=== PATIENT | female | born 1970 | race Caucasian/White ===

== ENCOUNTER 2019-10-10 10:31 | Outpatient (CLI) | payer BC, SELFPAY ==
[2019-10-10 11:04] LABS: Basophils Percent Auto 0.7 % (0.2-1.2); Eosinophils Absolute Auto 0.3 K/mm3 (0-0.3); Eosinophils Percent Auto 7.2 % (0-4.4); Hematocrit 38.1 % (37.0-47.0); Hemoglobin 12.8 g/dL (12.0-15.0); Immature Granulocyte Absolute 0.01 K/mm3 (0.00-0.031); Immature Granulocyte Percent A 0.2 % (0-0.5); Lymphocytes Absolute Auto 1.39 K/mm3 (0.9-3.2); Lymphocytes Percent Auto 30.4 % (18.3-44.2); Mean Corpuscular HGB Conc 33.6 g/dl (32-36); Mean Corpuscular Hemoglobin 32.4 pg (26-34); Mean Corpuscular Volume 96.5 fl (80-100); Monocytes Absolute Auto 0.4 K/mm3 (0.1-0.6); Monocytes Percent Auto 8.1 % (2.6-8.5); Neutrophils Absolute Auto 2.4 K/mm3 (1.3-6.7); Neutrophils Percent Auto 53.4 % (45.5-73.1); Platelet Count Result 238 k/mm3 (150-375); Red Blood Count 3.95 M/mm3 (4.2-5.4); Red Cell Distribution Width 12.5 % (11.5-14.5); White Blood Count 4.6 K/mm3 (4.5-10.0)
[2019-10-10 11:33] LABS: Beta HCG Quantitative < 2.39 mIU/ML
[2019-10-14 06:03] LABS: FSH 9.1 mIU/mL (***); Prolactin 39.1 ng/mL (***)
[2019-10-15 19:12] LABS: Estradiol, Ultrasensitive 113 pg/mL
== END 2019-10-10 10:32 | disposition home or self-care (01) ==
LOC: ANHLAB 10:33
PROVIDERS: PCP Family Medicine; Visit Provider Obstetrics & Gynecology
DX: N92.0 Excessive and frequent menstruation with regular cycle (principal)
CPT/HCPCS: 36415; 82670; 83001; 84146; 84443; 84702; 85025

== ENCOUNTER 2019-11-17 07:13 | Outpatient (CLI) | payer BC, SELFPAY ==
[2019-11-17 07:32] LABS: Basophils Absolute Auto 0.1 K/mm3 (0.0-0.1); Basophils Percent Auto 0.9 % (0.2-1.2); Eosinophils Absolute Auto 0.6 K/mm3 (0-0.3); Eosinophils Percent Auto 10.3 % (0-4.4); Hematocrit 39.6 % (37.0-47.0); Hemoglobin 13.1 g/dL (12.0-15.0); Immature Granulocyte Absolute 0.01 K/mm3 (0.00-0.031); Immature Granulocyte Percent A 0.2 % (0-0.5); Lymphocytes Absolute Auto 1.76 K/mm3 (0.9-3.2); Lymphocytes Percent Auto 31.8 % (18.3-44.2); Mean Corpuscular HGB Conc 33.1 g/dl (32-36); Mean Corpuscular Hemoglobin 32.2 pg (26-34); Mean Corpuscular Volume 97.3 fl (80-100); Mean Platelet Volume 10.3 fl (7.4-10.4); Monocytes Absolute Auto 0.5 K/mm3 (0.1-0.6); Monocytes Percent Auto 8.8 % (2.6-8.5); Neutrophils Absolute Auto 2.7 K/mm3 (1.3-6.7); Platelet Count Result 217 k/mm3 (150-375); Red Blood Count 4.07 M/mm3 (4.2-5.4); Red Cell Distribution Width 12.7 % (11.5-14.5); White Blood Count 5.5 K/mm3 (4.5-10.0)
[2019-11-17 07:48] LABS: Alanine Aminotransferase 21 U/L (4-35); Alkaline Phosphatase 43 U/L (38-126); Anion Gap 6 mmol/L (8-16); Aspartate Amino Transferase 43 U/L (14-36); Bilirubin,Total 0.9 mg/dL (0.2-1.3); Blood Urea Nitrogen 10 mg/dL (7-17); Calcium 9.1 mg/dL (8.4-10.2); Carbon Dioxide 26 mmol/L (22-30); Chloride 107 mmol/L (98-107); Cholesterol 186 mg/dL (0-200); Estimated Glomerular Filt Rate > 60; Glucose 98 mg/dL (65-105); HDL Direct 53 mg/dL; Sodium 139 mmol/L (137-145); Triglycerides 104 mg/dL (<150)
[2019-11-17 07:59] LABS: LDL Cholesterol Direct 97 mg/dL
[2019-11-17 13:39] LABS: Hemoglobin A1C 5.2 % (<5.7)
== END 2019-11-17 07:14 | disposition home or self-care (01) ==
PROVIDERS: PCP Family Medicine
DX: R21 Rash and other nonspecific skin eruption (principal)
CPT/HCPCS: 36415; 80053; 80061; 83036; 85025

== ENCOUNTER → 2020-01-05 10:14 | Outpatient (CLI) | payer BC, SELFPAY ==
--- NOTE | ~2020-01-05 | MM_ITS ---
EXAMINATION: MM screening steve BI w kelechi HISTORY: Screening TECHNIQUE: Craniocaudal and mediolateral oblique 3-D tomosynthesis images were obtained and synthetic 2-D images were generated. CAD analysis was submitted and interpreted. COMPARISON: Comparison to multiple prior studies sequentially, with oldest reviewed study dated 08/12. BREAST PARENCHYMAL COMPOSITION: The breasts are heterogenously dense, which may obscure small masses FINDINGS: There is no evidence of suspicious mass, calcification, or architectural distortion to sugg est malignancy in either breast. There has been no suspicious interval change. IMPRESSION: 1. No mammographic evidence of malignancy. 2. Recommend routine screening mammography in one year. BI-RADS Category 1: Negative Reviewed, dictated and finalized at location A. [facility] [employer]OPMENT
== END ==
PROVIDERS: PCP Family Medicine; Visit Provider Obstetrics & Gynecology
DX: Z12.31 Encounter for screening mammogram for malignant neoplasm of breast (principal)
CPT/HCPCS: 77063; 77067

== ENCOUNTER 2021-08-12 07:10 | Outpatient (CLI) | payer BC, SELFPAY ==
[2021-08-12 07:48] LABS: Eosinophils Absolute Auto 0.5 K/mm3 (0-0.3); Eosinophils Percent Auto 11.9 % (0-4.4); Hematocrit 41.3 % (37.0-47.0); Hemoglobin 14.1 g/dL (12.0-15.0); Immature Granulocyte Absolute 0.01 K/mm3 (0.00-0.031); Immature Granulocyte Percent A 0.2 % (0-0.5); Lymphocytes Absolute Auto 1.26 K/mm3 (0.9-3.2); Mean Corpuscular HGB Conc 34.1 g/dl (32-36); Mean Corpuscular Hemoglobin 32.3 pg (26-34); Mean Corpuscular Volume 94.7 fl (80-100); Mean Platelet Volume 10.1 fl (7.4-10.4); Monocytes Absolute Auto 0.4 K/mm3 (0.1-0.6); Monocytes Percent Auto 10.2 % (2.6-8.5); Neutrophils Percent Auto 46.7 % (45.5-73.1); Platelet Count Result 198 k/mm3 (150-375); Red Blood Count 4.36 M/mm3 (4.2-5.4); Red Cell Distribution Width 13.1 % (11.5-14.5); White Blood Count 4.2 K/mm3 (4.5-10.0)
[2021-08-12 08:18] LABS: Beta HCG Quantitative < 2.39 mIU/ML
[2021-08-19 23:32] LABS: Estradiol, Ultrasensitive 65 pg/mL
[2021-08-28 12:10] LABS: FSH 11.8 mIU/mL (***); Progesterone 0.7 ng/mL (***); Prolactin 32.3 ng/mL (***)
== END 2021-08-12 07:11 | disposition home or self-care (01) ==
LOC: ANHLAB 07:12
PROVIDERS: PCP Family Medicine; Visit Provider Obstetrics & Gynecology
DX: N93.9 Abnormal uterine and vaginal bleeding, unspecified (principal)
CPT/HCPCS: 36415; 82670; 83001; 84144; 84146; 84702; 85025

== ENCOUNTER → 2021-08-19 13:25 | Outpatient (CLI) | payer BC, SELFPAY ==
--- NOTE | ~2021-08-19 | US_ITS ---
EXAMINATION: US pelvic complete w TV DATE: 08/19/2021 13:50 INDICATION: Menorrhagia Comparison:Ultrasound dated 10/16/2017 TECHNIQUE: Multiple transabdominal and endovaginal sonographic images of the pelvis performed. FINDINGS: The uterus measures 6.8 x 3.4 x 4.3 cm. There are uterine fibroids, largest on the right me asuring 1.9 x 2 x 1.7 cm. The endometrial complex measures 4 mm. The right ovary measures 2 x 1.1 x 1.4 cm and the left ovary measures 4.6 x 4.4 x 3.6 cm. There are small follicles in each ovary. There is a left ovarian cyst measuring 4 x 3.2 x 3.3 cm. Normal dopple r signal in both ovaries. There is no free fluid in the pelvis. There are no abnormal masses seen on either side. IMPRESSION: 1. Uterine fibroids, largest measuring 2 cm. 2: Left ovarian cyst measuring 4 cm. Reviewed, dictated and finalized at location A.
== END ==
PROVIDERS: PCP Family Medicine; Visit Provider Obstetrics & Gynecology
DX: N93.9 Abnormal uterine and vaginal bleeding, unspecified (principal); D25.9 Leiomyoma of uterus, unspecified; N83.202 Unspecified ovarian cyst, left side
CPT/HCPCS: 76830; 76856

== ENCOUNTER 2021-08-26 02:10 | Day surgery (SDC) | payer BC, SELFPAY ==
[2021-08-23 08:23] VITALS: BMI 27.4
--- NOTE | 2021-08-23 08:34 | SUR.PREOP ---
Report to the Outpatient Waiting Room, entrance under the green pavilion located off [facility], at time 11:00 on date 08/26/21. OR Time: 13:00. - You and your visitor will be asked a series of questions to screen for COVID 19 for your protection. - Only one visitor is allowed at this time. - The patient visitor is requested to leave or wait in car when not with patient. - A mask is required within the hospital. Patients may have clear liquids (water, carbonated beverages, clear teas, apple juice) until 3 hours prior to surgery with a maximum of 20 ounces. - No food from midnight until time of surgery BEFORE 10:00 AM - Infants may have breast milk until 4 hours before surgery, formula 6 hours prior to surgery. - Children will be allowed to drink immediately following surgery. If applicable, please bring a bottle or sippy cup to assist with drinking. Juice, water, soda, and popsicles are readily available. For infants on formula, please bring formula the day of surgery. Pacifiers are allowed. Take the following medications with a SIP of water the morning of surgery: _MEDROXYPROGESTERONE_ Medications to discontinue per physician n/a Date to take last dose Please no make-up, nail vietnamese, hairspray, perfume, deodorant, or body powder the day of surgery. No jewelry (including any body piercings) or valuables the day of surgery, leave them at home. Please take a shower or bath the night before, or the morning of, surgery with an antibacterial soap. Wear comfortable, loose fitting clothing. Children are encouraged to wear pajamas. - Jewelry must be removed prior to entering the operating room. Rings and piercings that are not removed may be cut off. - The hospital will not accept responsibility for valuables. - Please leave all valuables, including medications, at home the day of surgery. If you are going home after surgery, a licensed local combination truck driver must drive you home. - NO public transportation without another adult. - We recommend that an adult stay with you for 24 hours following discharge. - We also recommend that you do not drive, make important decision, drink alcoholic beverages, or take any drugs that were not prescribed by your health care provider for at least 24 hours after your discharge time. For Pediatric surgeries, we recommend two adults accompany the child home (only one inside the building at this time). Follow any additional instructions given to you from your surgeon. If you or anyone in your household have experienced Covid symptoms in the past week, please notify your surgeon or the nurse liaison at the phone number below for possible testing. Telephone instructions given to ___PATIENT___and asked if any additional questions and then verbalized understanding. Patient advised to call surgeon office or pre surgery nurse liaison [phone] if any additional questions.
[2021-08-26] MEDS: LACTATED RINGERS 1,000 ML 30 ML IV CONT (11:30)
[2021-08-26] MEDS: ACETAMINOPHEN 500 MG TABLET 1000 MG PO (11:30)
[2021-08-26 11:37] VITALS: BP 122/71; PULSE 52; RESP 14; TEMP 36.6; O2SAT 99
--- NOTE | 2021-08-26 12:21 | P.PNAN_ITS ---
Anes - Initial Pre Proc Eval Procedure: Operation Date: 08/26/21 13:00 Proposed Procedures p Hysteroscopy Dilation and Curettage - Sharlene Crandall MD Date/Time: 08/26/21 12:21 Surgeon: Sharlene Crandall MD Pre Op Diagnosis: menometrorrhagia Patient Data Age: 51 Gender: F Height: 1.63 m Weight: 75.45 kg Last Vital Signs Temp 36.6 C 08/26/21 11:37 Pulse 52 L 08/26/21 11:37 Resp 14 08/26/21 11:37 BP 122/71 08/26/21 11:37 Pulse Ox 99 08/26/21 11:37 O2 Del Method Room Air 08/26/21 11:37 Allergies Allergy/AdvReac Type Severity Reaction Status Date / Time No Known Allergies Allergy Unknown Verified 08/26/21 11:09 Home Medications Medication Instructions Recorded Confirmed Type medroxyprogesterone 5 mg tablet 5 mg PO DAILY #60 tabs 08/10/21 08/26/21 Rx (Provera) Patient hx anesthesia problems: none Family hx anesthesia problems: none Results Review: All pre-operative results and documents have been reviewed as part of the pre- operative evaluation. [facility] Past Medical History Medical History Acute bronchitis, unspecified Acute sinusitis, unspecified BMI 28.0-28.9,adult BMI 29.0-29.9,adult Dietary counseling and surveillance (01/07/18) Heart palpitations Herpes zoster without complication Painful urination Yeast infection Surgical History Surgical History (Updated 08/26/21 @ 12:21 by Raz Blanchard MD) History of appendectomy Family History Family History Father Family history of elevated blood lipids Malignant neoplasm of prostate Family history of thyroid disease Hypertension Grandparent Family history of malignant neoplasm of uterus Family history of malignant neoplasm of breast Mother Acute myocardial infarction, Onset Age: 78 Sibling Leukemia Social History Social History Smoking status: Never smoker Second hand tobacco smoke exposure: No Alcohol intake: current Substance use: never Substance use type: does not use Living arrangements: with family 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 Informed Consent: The patient's anesthetic plan and its attendant risks and benefits were discussed with the patient/family/POA. Questions were solicited and answers provided to the satisfaction of the patient/family/POA.
--- NOTE | 2021-08-26 12:48 | PM.IMHP ---
H&P: HPI History of Present Illness Date/Time: 08/26/21 12:38 Chief Complaint: abnormal uterine bleeding Narrative: Ave is a 51yo perimenopausal P2002, LMP07/31/21 who presented to [facility] for AUB. Her pap is normal 10/2020. She has been having AUB for the last 1-2 years; but it was improving last fall. But beginning Mar 2020, she started having 2 cycles per month. The first bleed is normally a usual period; decently heavy (but the clots are smaller in size). But then she has another cycle that's heavier than spotting and multiple days. The most she had bled was 8 days, but this time she has been bleeding for 11 days. She is having significant hot flashes and night sweats. No symptoms of anemia. US showed normal sized uterus w/ 2cm fibroid; endometrium 4mm, left ovarian simple cyst measuring 4cm. Review of Systems Review of Systems: All systems reviewed & are unremarkable except as noted in HPI and below (HPI) [facility] Past Medical History Medical History Acute bronchitis, unspecified Acute sinusitis, unspecified BMI 28.0-28.9,adult BMI 29.0-29.9,adult Dietary counseling and surveillance (01/07/18) Heart palpitations Herpes zoster without complication Painful urination Yeast infection Surgical History Surgical History (Updated 08/26/21 @ 12:21 by Raz Blanchard MD) History of appendectomy Family History Family History Father Family history of elevated blood lipids Malignant neoplasm of prostate Family history of thyroid disease Hypertension Grandparent Family history of malignant neoplasm of uterus Family history of malignant neoplasm of breast Mother Acute myocardial infarction, Onset Age: 78 Sibling Leukemia Social History Social History Smoking status: Never smoker Second hand tobacco smoke exposure: No Alcohol intake: current Substance use: never Substance use type: does not use Living arrangements: with family 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 Meds Home Medications and Allergies Home Medications Medication Instructions Recorded Confirmed Type medroxyprogesterone 5 mg tablet 5 mg PO DAILY #60 tabs 08/10/21 08/23/21 Rx (Provera) Allergies Allergy/AdvReac Type Severity Reaction Status Date / Time No Known Allergies Allergy Unknown Verified 08/26/21 11:09 Exam Const: General: cooperative, healthy appearing, comfortable and no acute distress Resp: Effort & Inspection: normal respiratory effort Cardio: Rate: regular rate GI: Inspection: normal to inspection GI Palp: Yes Soft to palpation and No Tenderness to palpation present (GI) : Other: deferred to OR Skin: General skin exam: normal color Neuro: General: patient oriented x3 Extrem: General: normal to inspection Psych: Appearance: grossly normal Affect: normal affect Attitude: cooperative Assessment and Plan Assessment and plan (1) Abnormal uterine bleeding (AUB): Code(s): N93.9 - Abnormal uterine and vaginal bleeding, unspecified Status: Acute Plan - needs endometrial sampling - proceed with Hysteroscopy with D&C - risks and benefits explained in detail
--- NOTE | 2021-08-26 12:49 | WPDHPUPDATE1 ---
History and Physical Update Update Date/Time: 08/26/21 12:49 History and Physical has been reviewed, including an updated exam of the patient. There are NO changes in the patient's condition. Risks, benefits, and alternatives have been discussed and questions answered. Patient agrees to proceed with procedure.
--- NOTE | 2021-08-26 13:30 | W.PM.PROC2 ---
Procedure Note - Detailed Date of Procedure 08/26/21 Pre-op Diagnosis menometrorrhagia Post-op Diagnosis Same Procedure Performed Hysteroscopy with dilation and curettage Surgeon Sharlene Crandall MD Anesthesia MAC Christiano Dorado is a 51yo perimenopausal P2002, LMP07/31/21 who presented to clinic for AUB. Her pap is normal 10/2020. She has been having AUB for the last 1-2 years; but it was improving last fall. But beginning Mar 2020, she started having 2 cycles per month. The first bleed is normally a usual period; decently heavy (but the clots are smaller in size). But then she has another cycle that's heavier than spotting and multiple days. The most she had bled was 8 days, but this time she has been bleeding for 11 days. She is having significant hot flashes and night sweats. No symptoms of anemia. US showed normal sized uterus w/ 2cm fibroid; endometrium 4mm, left ovarian simple cyst measuring 4cm. Findings Uterus sounded to 7 cm; normal tubal ostia visualized bilaterally; normal appearing endometrium, possibly slightly thickened. Good hemostasis at end of case. Description of Procedure Ave was taken to the operating room where she was placed under sedation. She was then prepped and draped in the usual sterile fashion the dorsal lithotomy position with her legs in low Jay stirrups. A time-out was performed. No preoperative antibiotics were indicated. A bivalve speculum was placed within the vagina with the cervix was easily identified. The anterior lip of the cervix was grasped with single-tooth tenaculum. The uterus was then sounded. The cervix was then serially dilated to allow for the true clear hysteroscope. The hysteroscope was advanced into the uterus with the above findings noted. The hysteroscope was removed and a small curette was used to obtain an adequate endometrial sample. Good uterine cry was noted. Good hemostasis was noted. Sponge, lap, instrument, and needle counts were correct at the end the procedure. Patient was awoken from anesthesia and taken to recovery in a stable condition with plans of same-day discharge home. She was counseled on pelvic rest and [id number] medications to take for pain. Estimated Blood Loss 5 Pathology Yes Complications No immediate complications Condition Stable Disposition Same day [facility] Billing Surgery - Charge Forward: Surgery Billing
[2021-08-26 13:32] VITALS: BP 112/71; PULSE 58; RESP 16; O2SAT 99
[2021-08-26 14:00] VITALS: BP 118/73; PULSE 50
[2021-08-26] MEDS: oxyCODONE HCL (*CRX) 5 MG TAB IR PO (14:05)
[2021-08-26 14:25] VITALS: BP 131/71; PULSE 44
== END 2021-08-26 14:34 | disposition home or self-care (01) ==
PROVIDERS: PCP Family Medicine; Visit Provider Obstetrics & Gynecology
PROC: 0U5B8ZZ Destruction of Endometrium, Via Natural or Artificial Opening Endoscopic (ICD-10-PCS; CPT 58563; principal; 2021-08-26 13:00)
DX: N92.1 Excessive and frequent menstruation with irregular cycle (principal)
CPT/HCPCS: 58558; 88305; A9270; J1100; J1885; J2250; J2405; J2704; J3010; J7030; J7120

== ENCOUNTER 2022-09-20 07:25 | Outpatient (CLI) | payer BC, SELFPAY ==
[2022-09-20 07:57] LABS: Basophils Percent Auto 0.8 % (0.2-1.2); Eosinophils Absolute Auto 0.4 K/mm3 (0-0.3); Eosinophils Percent Auto 10.3 % (0-4.4); Hemoglobin 13.2 g/dL (12.0-15.0); Lymphocytes Absolute Auto 1.21 K/mm3 (0.9-3.2); Lymphocytes Percent Auto 32.9 % (18.3-44.2); Mean Corpuscular HGB Conc 33.8 g/dl (32-36); Mean Corpuscular Hemoglobin 32.4 pg (26-34); Mean Corpuscular Volume 95.8 fl (80-100); Mean Platelet Volume 10.6 fl (7.4-10.4); Monocytes Absolute Auto 0.3 K/mm3 (0.1-0.6); Monocytes Percent Auto 8.7 % (2.6-8.5); Neutrophils Absolute Auto 1.7 K/mm3 (1.3-6.7); Neutrophils Percent Auto 47.3 % (45.5-73.1); Platelet Count Result 165 k/mm3 (150-375); Red Blood Count 4.07 M/mm3 (4.2-5.4); Red Cell Distribution Width 13.2 % (11.5-14.5); White Blood Count 3.7 K/mm3 (4.5-10.0)
[2022-09-20 08:08] LABS: Alanine Aminotransferase 31 U/L (6-35); Albumin Level 4.2 g/dL (3.5-5.1); Alkaline Phosphatase 49 U/L (38-126); Anion Gap 2 mmol/L (8-16); Aspartate Amino Transferase 47 U/L (14-36); Bilirubin,Total 0.9 mg/dL (0.2-1.3); Blood Urea Nitrogen 10 mg/dL (7-17); Calcium 9.3 mg/dL (8.4-10.2); Carbon Dioxide 31 mmol/L (22-30); Chloride 106 mmol/L (98-107); Cholesterol 187 mg/dL (0-200); Estimated Glomerular Filt Rate > 60; Glucose 97 mg/dL (65-110); HDL Direct 54 mg/dL; Potassium 3.8 mmol/L (3.4-5.0); Sodium 139 mmol/L (137-145); Triglycerides 101 mg/dL (<150)
[2022-09-20 08:19] LABS: LDL Cholesterol Direct 83 mg/dL
== END 2022-09-20 07:26 | disposition home or self-care (01) ==
PROVIDERS: PCP Family Medicine; Visit Provider Physician Assistant Medical
DX: N93.9 Abnormal uterine and vaginal bleeding, unspecified (principal); R00.2 Palpitations; Z13.220 Encounter for screening for lipoid disorders
CPT/HCPCS: 36415; 80053; 80061; 85025

== ENCOUNTER 2022-10-27 00:57 | Day surgery (SDC) | payer BC, SELFPAY ==
[2022-10-18 14:07] VITALS: BMI 27.5
[2022-10-27 11:12] VITALS: BP 121/80; PULSE 61; RESP 16; TEMP 36.4; O2SAT 99; BMI 29.4
[2022-10-27] MEDS: LACTATED RINGERS 1,000 ML 150 ML IV CONT (11:15)
--- NOTE | 2022-10-27 11:18 | WPDANESEPPF ---
Anes - Initial Pre Proc Eval Procedure: Operation Date: 10/27/22 12:30 Proposed Procedures p Screening Colonoscopy - Gentry Hobbs MD Date/Time: 10/27/22 11:18 Surgeon: Gentry Hobbs MD Pre Op Diagnosis: neoplasm screening Patient Data Age: 52 Gender: F Height: 1.63 m Weight: 77.8 kg Last Vital Signs Temp 36.4 C L 10/27/22 11:12 Pulse 61 10/27/22 11:12 Resp 16 10/27/22 11:12 BP 121/80 10/27/22 11:12 Pulse Ox 99 10/27/22 11:12 O2 Del Method Room Air 10/27/22 11:12 Allergies Allergy/AdvReac Type Severity Reaction Status Date / Time No Known Allergies Allergy Unknown Verified 10/27/22 11:11 Home Medications Medication Instructions Recorded Confirmed Type medroxyprogesterone 5 mg tablet 5 mg PO DAILY #90 tabs 03/08/22 10/27/22 Rx (Provera) Patient hx anesthesia problems: none Family hx anesthesia problems: none Results Review: All pre-operative results and documents have been reviewed as part of the pre-operative evaluation. COUNTS INCLUDE 234 BEDS AT THE [facility] Past Medical History Medical History Acute bronchitis, unspecified Acute sinusitis, unspecified BMI 28.0-28.9,adult BMI 29.0-29.9,adult Dietary counseling and surveillance (01/07/18) Heart palpitations Herpes zoster without complication Painful urination Screening mammogram, encounter for Yeast infection Surgical History Surgical History History of appendectomy Family History Family History Father Family history of elevated blood lipids Malignant neoplasm of prostate Family history of thyroid disease Hypertension Grandparent Family history of malignant neoplasm of uterus Family history of malignant neoplasm of breast Mother Acute myocardial infarction, Onset Age: 78 Sibling Leukemia Other Breast cancer Cerebrovascular accident Colon cancer Heart disease Ovarian cancer Social History Social History Smoking status: Never smoker Second hand tobacco smoke exposure: No Alcohol intake: current Alcohol use details: socially Substance use: never Substance use type: does not use Lack of Transportation: No Lack of Food: Never True Current Housing: I Have Housing Concerned About Future Housing: No Difficulty Paying Gas/Electric Bills: No Difficulty Paying for Meds: No Currently Unemployed: No Education: Bachelor's Degree Difficulty w/ Childcare or Family Care: No Living arrangements: with family Occupation/Education: occupation 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 Sexual Orientation (if Verbalized by the Patient): Straight or Heterosexual Spiritual care concerns: No Anes - Eval Final PreProcedure Day of Procedure 10/27/22 11:18 Patient weight: overweight Heart: regular rate and rhythm Lungs: clear to auscultation Airway: Mallampati scale class II Neurological: alert and oriented Last oral intake: >/= 8 hours ASA classification: II Emergent: no Anesthetic plan: proceed Anesthesia type and monitoring: general GIVS and standard monitoring Results Review: All pre-operative results and documents have been reviewed as part of the pre-operative evaluation. Informed Consent: The patient's anesthetic plan and its attendant risks and benefits were discussed with the patient/family/POA. Questions were solicited and answers provided to the satisfaction of the patient/family/POA.
--- NOTE | 2022-10-27 11:34 | PM.HPGS ---
History of Present Illness History of Present Illness Consent: Risks, benefits, and alternatives have been discussed and questions answered. Patient agrees to proceed with procedure. Chief complaint: neoplasm screening Narrative: Josie Jolly is a 52 year old female here for first screening colonoscopy Review of Systems Constitutional: Constitutional: Denies headache(s) and Denies weakness Eyes: Eyes: Denies blurry vision ENT: Reports Normal hearing present, Denies headache(s) and Denies neck pain Cardiovascular: Cardiovascular: Denies chest pain and Denies dyspnea Respiratory: Respiratory: Denies dyspnea Gastrointestinal: Gastrointestinal: Reports no additional gastrointestinal complaints Genitourinary: Genitourinary: Denies dysuria Musculoskeletal: Musculoskeletal: Denies neck pain Integumentary/Breasts: Skin/Breast: Denies dry skin Neurologic: Reports Normal hearing present, Denies headache(s) and Denies weakness Psychiatric: Psychiatric: Denies anxiety Endocrine: Endocrine: Denies change in body appearance Hematologic/Lymphatic: Hematologic/Lymphatic: Denies easy bleeding Allergic/Immunologic: Allergic/Immunologic: Denies urticaria PMFSH Past Medical History Medical History Acute bronchitis, unspecified Acute sinusitis, unspecified BMI 28.0-28.9,adult BMI 29.0-29.9,adult Dietary counseling and surveillance (01/07/18) Heart palpitations Herpes zoster without complication Painful urination Screening mammogram, encounter for Yeast infection Surgical History Surgical History History of appendectomy Family History Family History Father Family history of elevated blood lipids Malignant neoplasm of prostate Family history of thyroid disease Hypertension Grandparent Family history of malignant neoplasm of uterus Family history of malignant neoplasm of breast Mother Acute myocardial infarction, Onset Age: 78 Sibling Leukemia Other Breast cancer Cerebrovascular accident Colon cancer Heart disease Ovarian cancer Social History Social History Smoking status: Never smoker Second hand tobacco smoke exposure: No Alcohol intake: current Alcohol use details: socially Substance use: never Substance use type: does not use Lack of Transportation: No Lack of Food: Never True Current Housing: I Have Housing Concerned About Future Housing: No Difficulty Paying Gas/Electric Bills: No Difficulty Paying for Meds: No Currently Unemployed: No Education: Bachelor's Degree Difficulty w/ Childcare or Family Care: No Living arrangements: with family Occupation/Education: occupation 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 Sexual Orientation (if Verbalized by the Patient): Straight or Heterosexual Spiritual care concerns: No Meds Home Medications and Allergies Home Medications Medication Instructions Recorded Confirmed Type medroxyprogesterone 5 mg tablet 5 mg PO DAILY #90 tabs 03/08/22 10/27/22 Rx (Provera) Allergies Allergy/AdvReac Type Severity Reaction Status Date / Time No Known Allergies Allergy Unknown Verified 10/27/22 11:11 Vital Signs Vital Signs - 24 hr 10/27/22 11:12 Temperature 97.5 F L Pulse Rate 61 Respiratory Rate 16 Blood Pressure 121/80 Pulse Oximetry 99 Oxygen Delivery Room Air Exam Const: General: comfortable and no acute distress HENMT: Face/Nose/Sinus: Normal nares present Eyes: General: appearance normal, both eyes and all related structures Neck: Neck: no JVD Resp: Auscultation: clear to auscultation bilaterally Cardio: Rate: regular rate Rhythm: regular rhythm GI: Insp
[2022-10-27 11:55] VITALS: BP 109/71; PULSE 68; RESP 24; O2SAT 100
[2022-10-27 12:05] VITALS: BP 111/77; PULSE 65; RESP 16; O2SAT 100
[2022-10-27 12:15] VITALS: BP 123/82; PULSE 56; RESP 14; O2SAT 100
== END 2022-10-27 12:22 | disposition home or self-care (01) ==
PROVIDERS: PCP Family Medicine; Visit Provider Internal Medicine Gastroenterology
PROC: 0DJD8ZZ Inspection of Lower Intestinal Tract, Via Natural or Artificial Opening Endoscopic (ICD-10-PCS; CPT 45378; principal; 2022-10-27 12:30)
DX: Z12.11 Encounter for screening for malignant neoplasm of colon (principal); K64.8 Other hemorrhoids
CPT/HCPCS: 45378; J2704; J7120

== ENCOUNTER → 2022-12-13 15:56 | Outpatient (CLI) | payer BC, SELFPAY ==
--- NOTE | ~2022-12-13 | MM_ITS ---
EXAMINATION: MM screening steve BI w kelechi HISTORY: Screening mammogram TECHNIQUE: Craniocaudal and mediolateral oblique 3-D tomosynthesis images were obtained and synthetic 2-D images were generated. CAD analysis was submitted and interpreted. COMPARISON: 01/05/2020, 12/31/2018, 10/16/2017 bilateral screening mammogram examinations BREAST PARENCHYMAL COMPOSITION: There are scattered areas of fibroglandular density. FINDINGS: There is no evidence of suspicious mass, calcification, or architectural distortion to sugg est malignancy in either breast. There has been no suspicious interval change. IMPRESSION: 1. No mammographic evidence of malignancy. 2. Recommend routine screening mammography in one year. BI-RADS Category 1: Negative Reviewed, dictated and finalized at location A.
== END ==
PROVIDERS: PCP Family Medicine; Visit Provider Obstetrics & Gynecology
DX: Z12.31 Encounter for screening mammogram for malignant neoplasm of breast (principal)
CPT/HCPCS: 77063; 77067

== ENCOUNTER 2024-04-23 12:51 | Outpatient (CLI) | payer OTHER, SELFPAY ==
--- NOTE | ~2024-04-23 | MM_ITS ---
EXAMINATION: MM screening steve BI w kelechi HISTORY: Screening TECHNIQUE: Craniocaudal and mediolateral oblique 3-D tomosynthesis images were obtained and synthetic 2-D images were generated. CAD analysis was submitted and interpreted. COMPARISON: Comparison to multiple prior studies sequentially, with oldest reviewed study dated 08/12. BREAST PARENCHYMAL COMPOSITION: Not dense: There are scattered areas of fibroglandular density. FINDINGS: There is no evidence of suspicious mass, calcification, or architectural distortion to sugg est malignancy in either breast. There has been no suspicious interval change. IMPRESSION: 1. No mammographic evidence of malignancy. 2. Recommend routine screening mammography in one year. BI-RADS Category 1: Negative Reviewed, dictated and finalized at location B. R MACHINE OPERATOR
== END 2024-04-23 12:52 | disposition home or self-care (01) ==
LOC: MICIMG 12:52
PROVIDERS: PCP Family Medicine; Visit Provider Obstetrics & Gynecology
DX: Z12.31 Encounter for screening mammogram for malignant neoplasm of breast (principal)
CPT/HCPCS: 77063; 77067